=== PATIENT | female | born 2000 | race Caucasian/White ===

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

== ENCOUNTER 2018-06-23 14:28 | Emergency (ER) | payer OTHER | END 2018-06-23 15:03 | disposition home or self-care (01) | LOC: MADERS 14:28 | DX: B34.9 Viral infection, unspecified (principal) | CPT/HCPCS: 99283 ==

== ENCOUNTER 2018-07-08 16:03 | Emergency (ER) | payer OTHER ==
[2018-07-08 16:32] LABS: Bilirubin Negative (Negative); Blood, Urine Moderate (Negative); Glucose, Urine (Dipstick) Negative (Negative); Leukocyte Large (Negative); Nitrite Positive (Negative); Protein, Urine (Dipstick) Negative (Neg-Trace); Specific Gravity, Urine 1.015 (1.005-1.030); pH, Urine 7.5 (5.0-9.0)
[2018-07-08 16:35] LABS: Pregnancy Test - Urine (BHCG) Negative (Negative); Pregu Control Background? CLEAR/WHITE (CLR/WHITE); Pregu Control Bar Appear? YES (CONTROL BAR); Specific Gravity 1.015 (1.002-1.036)
[2018-07-08 16:36] LABS: Bacteria/HPF 4+ HPF (None Seen); Clarity Cloudy (Clear); Squamous Epithelial 0-3 HPF (0-3)
== END 2018-07-08 17:15 | disposition home or self-care (01) ==
LOC: MADERS 16:03
DX: N39.0 Urinary tract infection, site not specified (principal)
CPT/HCPCS: 81003; 81015; 81025; 99283

== ENCOUNTER 2019-10-20 01:38 | Emergency (ER) | payer OTHER ==
[2019-10-20 02:04] LABS: Bilirubin Negative (Negative); Blood, Urine Large (Negative); Clarity Clear (Clear); Glucose, Urine (Dipstick) Negative (Negative); Leukocyte Small (Negative); Nitrite Positive (Negative); Pregnancy Test - Urine (BHCG) Negative (Negative); Protein, Urine (Dipstick) > or equal to 300 mg/dL (Neg-Trace); Urobilinogen 0.2 mg/dL (Less than 2)
[2019-10-20 02:05] LABS: Pregu Control Background? CLEAR/WHITE (CLR/WHITE); Pregu Control Bar Appear? YES (CONTROL BAR); Specific Gravity 1.021 (1.002-1.036)
[2019-10-20 02:06] LABS: RBC/HPF Greater than 50 HPF (0-3)
[2019-10-20 02:07] LABS: Bacteria/HPF 1+ HPF (None Seen); Squamous Epithelial 0-3 HPF (0-3)
[2019-10-20] MEDS ORDERED: Cephalexin 500 MG CAP ONE (02:52)
== END 2019-10-20 03:00 | disposition home or self-care (01) ==
LOC: MADERS 01:38
DX: N39.0 Urinary tract infection, site not specified (principal)
CPT/HCPCS: 81003; 81015; 81025; 87077; 87086; 87186; 99283

== ENCOUNTER 2019-10-21 15:21 | Emergency (ER) | payer OTHER ==
[2019-10-21] MEDS ORDERED: Acetaminophen 500 MG TAB ONE (15:51)
[2019-10-21] MEDS ORDERED: cefTRIAXone\\ROCEPHIN 1 GM VIAL ONE (15:51)
[2019-10-21] MEDS ORDERED: Lidocaine 1% 20 ML MDV ONE (15:51)
== END 2019-10-21 16:25 | disposition home or self-care (01) ==
LOC: MADERS 15:21
DX: N10 Acute pyelonephritis (principal)
CPT/HCPCS: 96372; 99283; J0696; J2001

== ENCOUNTER 2021-07-07 20:26 | Emergency (ER) | payer OTHER ==
[~2021-07-07 20:26] MED LIST: Sodium Chloride 0.9% 1,000 ML BAG ONE; Sodium Chloride 0.9% 100 ML BAG ONE
[2021-07-07] MEDS ORDERED: Ondansetron PF 4 MG/2 ML Vial ONE (20:43)
[2021-07-07 20:44] LABS: Bilirubin Small (Negative); Blood, Urine Large (Negative); Glucose, Urine (Dipstick) Negative (Negative); Ketone, Urine 15 mg/dL (Negative); Leukocyte Trace (Negative); Nitrite Negative (Negative); Protein, Urine (Dipstick) 30 mg/dL (Neg-Trace); Urobilinogen 0.2 mg/dL (Less than 2)
[2021-07-07 20:48] LABS: Pregnancy Test - Urine (BHCG) Negative (Negative); Pregu Control Background? CLEAR/WHITE (CLR/WHITE); Pregu Control Bar Appear? YES (CONTROL BAR)
[2021-07-07] MEDS ORDERED: Morphine 4 MG/ML VIAL ONE ×2 (20:52→23:02)
[2021-07-07 20:54] LABS: Bacteria/HPF 4+ HPF (None Seen); Clarity Turbid (Clear); RBC/HPF Greater than 50 HPF (0-3)
[2021-07-07 21:04] LABS: #Basophils 0.1 thou/uL (0.0-0.2); #Eosinphils 0.1 thou/uL (0.0-0.7); #Lymphocytes 3.8 thou/uL (1.20-3.40); #Monocytes 0.9 thou/uL (0.11-0.59); #Neutrophils 7.6 thou/uL (1.40-6.50); %Basophils 0.6 % (0.0-1.0); %Eosinophils 0.8 % (0.0-10.0); %Lymphocytes 30.4 % (21.0-51.0); %Monocytes 6.9 % (0.0-10.0); %Neutrophils 61.3 % (42.0-75.0); Hemoglobin 11.9 g/dL (12.0-16.0); Mean Corpuscular HGB CONC 33.2 g/dL (32.0-36.0); Mean Corpuscular Hemoglobin 28.3 pg (27.0-31.0); Mean Platelet Volume 9.9 fL (7.4-10.4); Platelet Count 271 thou/uL (130-400); RBC Distribution Width 11.5 % (11.5-14.5); White Blood Cell (WBC) Count 12.3 thou/uL (4.8-10.8)
[2021-07-07 21:24] LABS: ALT (SGPT) 13 U/L (8-55); AST (SGOT) 13 U/L (5-34); Albumin 3.6 g/dL (3.5-5.0); Alkaline Phosphatase 67 U/L (40-110); Anion Gap 16 mmol/L (10-20); BUN (Urea Nitrogen) 16 mg/dL (7.0-18.7); Bilirubin, Total 0.3 mg/dL (0.2-1.2); Calc. Creatinine Clearance 0 mL/min (70-130); Calcium 8.5 mg/dL (7.8-10.44); Carbon Dioxide 19 mmol/L (22-29); Chloride 108 mmol/L (98-107); Globulin 2.6 g/dL (2.4-3.5); Glucose 110 mg/dL (70-105); Lipase 16 U/L (8-78); Potassium 3.6 mmol/L (3.5-5.1); Protein, Total 6.2 g/dL (6.0-8.3); Sodium 139 mmol/L (136-145)
[2021-07-07] MEDS ORDERED: cefTRIAXone\\ROCEPHIN 1 GM VIAL ONE (22:33)
[2021-07-07] MEDS ORDERED: Ketorolac Tromethamine 30 MG/ML VIAL ONE (23:02)
== END 2021-07-07 23:35 | disposition home or self-care (01) ==
LOC: MADERS 20:26
DX: N20.0 Calculus of kidney (principal)
CPT/HCPCS: 36415; 74176; 80053; 81003; 81015; 81025; 83605; 83690; 85025; 87086; 96374; 96375; 96376; J0696; J1885; J2270; J2405; J3490; J7050

== ENCOUNTER 2021-07-14 01:05 | Emergency (ER) | payer OTHER ==
[2021-07-14 01:43] LABS: #Basophils 0.1 thou/uL (0.0-0.2); #Eosinphils 0.3 thou/uL (0.0-0.7); #Lymphocytes 4.8 thou/uL (1.20-3.40); #Monocytes 0.7 thou/uL (0.11-0.59); #Neutrophils 7.4 thou/uL (1.40-6.50); %Basophils 0.6 % (0.0-1.0); %Eosinophils 2.5 % (0.0-10.0); %Lymphocytes 36.1 % (21.0-51.0); %Neutrophils 55.8 % (42.0-75.0); Hemoglobin 13.3 g/dL (12.0-16.0); Mean Corpuscular HGB CONC 31.8 g/dL (32.0-36.0); Mean Corpuscular Hemoglobin 27.7 pg (27.0-31.0); Mean Corpuscular Volume 87.1 fL (78.0-98.0); Mean Platelet Volume 8.9 fL (7.4-10.4); Platelet Count 297 thou/uL (130-400); RBC Distribution Width 12.5 % (11.5-14.5); Red Blood Cell (RBC) Count 4.79 mill/uL (4.20-5.40); White Blood Cell (WBC) Count 13.3 thou/uL (4.8-10.8)
[2021-07-14 01:46] LABS: Bilirubin Negative (Negative); Blood, Urine Trace (Negative); Clarity Clear (Clear); Glucose, Urine (Dipstick) Negative (Negative); Ketone, Urine Negative (Negative); Leukocyte Negative (Negative); Nitrite Negative (Negative); Protein, Urine (Dipstick) Negative (Neg-Trace); Urobilinogen 0.2 mg/dL (Less than 2)
[2021-07-14 01:53] LABS: RBC/HPF 0-3 HPF (0-3); Squamous Epithelial 0-3 HPF (0-3); Transitional Epithelial 0-3 HPF (None Seen); WBC/HPF 0-3 HPF (0-3)
[2021-07-14 01:54] LABS: Bacteria/HPF Rare-Few HPF (None Seen)
[2021-07-14 02:00] LABS: BHCG - Serum Negative (NEGATIVE); Pregs Control Background? CLEAR/WHITE (CLR/WHITE); Pregs Control Bar Appear? YES (CONTROL BAR)
[2021-07-14 02:11] LABS: ALT (SGPT) 16 U/L (8-55); AST (SGOT) 11 U/L (5-34); Albumin 4.2 g/dL (3.5-5.0); Alkaline Phosphatase 72 U/L (40-110); Anion Gap 12 mmol/L (10-20); BUN (Urea Nitrogen) 12 mg/dL (7.0-18.7); Bilirubin, Total 0.4 mg/dL (0.2-1.2); Calc. Creatinine Clearance 0 mL/min (70-130); Calcium 9.4 mg/dL (7.8-10.44); Carbon Dioxide 27 mmol/L (22-29); Chloride 102 mmol/L (98-107); Globulin 3.2 g/dL (2.4-3.5); Glucose 93 mg/dL (70-105); Lipase 20 U/L (8-78); Magnesium 2.1 mg/dL (1.6-2.6); Protein, Total 7.4 g/dL (6.0-8.3); Sodium 137 mmol/L (136-145)
[2021-07-14] MEDS ORDERED: Ondansetron ODT 4 MG TAB ONE (02:44)
[2021-07-14] MEDS ORDERED: predniSONE 20 MG TAB ONE (02:44)
== END 2021-07-14 05:18 | disposition home or self-care (01) ==
LOC: MADERS 01:05
DX: R10.9 Unspecified abdominal pain (principal)
CPT/HCPCS: 74176; 80053; 81003; 81015; 83690; 83735; 84703; 85025; 87086; J7512; Q0162